=== PATIENT | male | born 1950 | race Asian ===

== ENCOUNTER 2017-10-24 09:26 | Emergency (ER) | payer MEDICARE ==
[~2017-10-24] VITALS: Ht 175.3 cm; Wt 79.4 kg
--- NOTE | 2017-10-24 09:26 | NUR ---
Pt was brought to bed 7 by ACLS for chest pain since last night 2100, pt states "feels like someone is sitting on my chest." Pt denies radiating pain, n/v or fever. Pt was given nitro and aspirin in route. Pt denies SOB and is communicating in full sentences. No other injuries/complaints per pt or noted.
[2017-10-24 09:30] VITALS: BP_SYST 120
--- NOTE | 2017-10-24 09:50 | NUR ---
ER at bedside examining patient.
[2017-10-24] MEDS: NACL 0.9% 1,000 ML IV ONE ×2 (09:54→11:05)
[2017-10-24] MEDS ORDERED: NITROGLYCERIN 1 INCH (GM) OINT. TP ONE (10:00)
[2017-10-24] MEDS ORDERED: KETOROLAC TROMETHAMINE 30 MG VIAL IVP ONE (10:00)
[2017-10-24 10:01] LABS: BASOPHILS % (AUTO) 0.3 % (0.0-2.0); EOSINOPHILS # (AUTO) 0.1 K/uL (0.0-0.4); EOSINOPHILS % (AUTO) 1.4 % (0.0-4.0); HEMATOCRIT 40.3 % (36-54); HEMOGLOBIN 13.4 g/dL (14.0-18.0); LYMPHOCYTES # (AUTO) 0.7 K/uL (1.0-5.5); LYMPHOCYTES % (AUTO) 10.8 % (20.5-51.5); MEAN CORPUSCULAR HEMOGLOBIN 30 pg (27-31); MEAN CORPUSCULAR HGB CONC 33 % (32-36); MEAN CORPUSCULAR VOLUME 89 fL (79.0-98.0); MONOCYTES # (AUTO) 0.3 K/uL (0.0-1.0); MONOCYTES % (AUTO) 4.7 % (1.7-9.3); NEUTROPHILS # (AUTO) 5.2 K/uL (1.8-7.7); NEUTROPHILS % (AUTO) 82.8 % (40.0-70.0); PLATELET COUNT (AUTO) 276 K/uL (130-430); RED BLOOD CELL COUNT(AUTO) 4.53 MIL/uL (4.2-6.2); WHITE BLOOD COUNT (AUTO) 6.3 K/uL (4.8-10.8)
--- NOTE | 2017-10-24 10:30 | NUR ---
Pt refused toradol, states does not have pain at this time.
--- NOTE | 2017-10-24 10:30 | NUR ---
Called pharmacy for nitro paste, not in pyxis
[2017-10-24 10:51] LABS: ANION GAP 7 (5-15); CALCIUM 9.1 mg/dL (8.4-11.0); CHLORIDE 102 mmol/L (98-107); CREATININE 1.01 mg/dL (0.55-1.30); GLUCOSE 137 mg/dL (70-99); POTASSIUM 4.4 mmol/L (3.5-5.1); SODIUM SERUM 136 mmol/L (136-145); UREA NITROGEN, BLOOD 19 mg/dL (8-21)
[2017-10-24 11:00] LABS: GFR AFRICAN AMERICAN 94 mL/min (>90)
[2017-10-24 11:04] LABS: ALANINE AMINOTRANSFERASE 37 U/L (12-78); ASPARTATE AMINOTRANSFERASE 25 U/L (10-37); TOTAL BILIRUBIN 0.6 mg/dL (0.0-1.0)
--- NOTE | 2017-10-24 11:10 | NUR ---
Pt refused nitro paste, states "has no more chest pain and was already given nitro in ambulance." Dr Yang is aware
[2017-10-24 11:16] LABS: PROTHROMBIN TIME 10.5 SECS (9.5-12.5)
[2017-10-24 11:52] LABS: ALBUMIN 3.6 g/dL (3.4-4.8)
[2017-10-24 13:00] VITALS: BP_SYST 120
--- NOTE | 2017-10-24 13:40 | NUR ---
Patient given written and verbal discharge instructions and verbalizes understanding. ER MD discussed with patient the results and treatment provided. Patient in stable condition. ID arm band removed. IV catheter removed intact and dressing applied, no active bleeding. Rx of Nitroglycerin given. Patient educated on pain management and to follow up with PMD. Pain Scale 0/10 . Opportunity for questions provided and answered.
== END 2017-10-24 13:00 | disposition home or self-care (01) ==
LOC: SED 09:26
DX: R07.89 Other chest pain (principal); R51 Headache
CPT/HCPCS: 36415; 71045; 80053; 84484; 85025; 85610; 85730; 93005; 96360; 96361; 99285; J1885; J7030

== ENCOUNTER 2024-03-06 17:06 | Emergency (ER) | payer MEDICARE, OTHER ==
[~2024-03-06] VITALS: Ht 172.7 cm; Wt 83.9 kg
[2024-03-06 17:10] VITALS: BP_SYST 159; PULSE 92; RESP 18; TEMP 97.4; O2SAT 98
[2024-03-06 18:44] LABS: ANION GAP 12 (5-15); CALCIUM 8.9 mg/dL (8.4-11.0); CARBON DIOXIDE 25 mmol/L (23-29); CHLORIDE 96 mmol/L (98-107); GLUCOSE 142 mg/dL (74-106); SODIUM SERUM 133 mmol/L (136-145); UREA NITROGEN, BLOOD 31 mg/dL (8-21)
[2024-03-06 18:46] LABS: BASOPHILS # (AUTO) 0.1 K/uL (0.0-0.2); BASOPHILS % (AUTO) 0.9 % (0.0-2.0); EOSINOPHILS # (AUTO) 0.1 K/uL (0.0-0.4); EOSINOPHILS % (AUTO) 0.6 % (0.0-4.0); HEMOGLOBIN 11.7 g/dL (14.0-18.0); LYMPHOCYTES # (AUTO) 2.4 K/uL (1.0-5.5); LYMPHOCYTES % (AUTO) 15.4 % (20.5-51.5); MEAN CORPUSCULAR HEMOGLOBIN 29 pg (27-31); MEAN CORPUSCULAR HGB CONC 34 % (32-36); MEAN CORPUSCULAR VOLUME 85 fL (79.0-98.0); MONOCYTES # (AUTO) 1.3 K/uL (0.0-1.0); MONOCYTES % (AUTO) 8.6 % (1.7-9.3); NEUTROPHILS # (AUTO) 11.5 K/uL (1.8-7.7); NEUTROPHILS % (AUTO) 74.5 % (40.0-70.0); PLATELET COUNT (AUTO) 323 K/uL (130-430); RED BLOOD CELL COUNT(AUTO) 3.99 MIL/uL (4.2-6.2); RED CELL DISTRIBUTION WIDTH 14.5 % (9.0-15.0); WHITE BLOOD COUNT (AUTO) 15.4 K/uL (4.8-10.8)
[2024-03-06] MEDS: ACETAMINOPHEN 500 MG TABLET PO ONE (19:34)
[2024-03-06 20:47] VITALS: BP_SYST 179; PULSE 105; RESP 20; TEMP 98.3; O2SAT 94
== END 2024-03-06 20:47 | disposition home or self-care (01) ==
LOC: SED 17:06
DX: R33.9 Retention of urine, unspecified (principal); E11.9 Type 2 diabetes mellitus without complications; I10 Essential (primary) hypertension; Z88.0 Allergy status to penicillin; Z88.1 Allergy status to other antibiotic agents
CPT/HCPCS: 36415; 80048; 82948; 85025; 99283